=== PATIENT | female | born 2005 | race Caucasian/White ===

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

== ENCOUNTER 2025-02-11 16:05 | Emergency (ER) | payer MEDICAID | END 2025-02-11 16:52 | disposition home or self-care (01) | LOC: JP.ED 16:05 | DX: L01.00 Impetigo, unspecified (principal); F17.200 Nicotine dependence, unspecified, uncomplicated | CPT/HCPCS: 99283 ==

== ENCOUNTER 2025-03-03 19:58 | Emergency (ER) | payer MEDICAID ==
[2025-03-03 20:51] LABS: CORONAVIRUS COVID-19 NAA NEGATIVE (NEGATIVE); INFLUENZA A NAA POSITIVE (NEGATIVE); INFLUENZA B NAA NEGATIVE (NEGATIVE); RESPIRATORY SYNCYTIAL VIR NAA NEGATIVE (NEGATIVE)
== END 2025-03-03 21:16 | disposition home or self-care (01) ==
LOC: JP.ED 19:58
DX: J10.1 Influenza due to other identified influenza virus with other respiratory manifestations (principal); F17.200 Nicotine dependence, unspecified, uncomplicated
CPT/HCPCS: 87637; 99283